=== PATIENT | male | born 1970 ===

== ENCOUNTER 2017-05-12 20:10 | Emergency (ER) | payer OTHER ==
[2017-05-12 20:20] VITALS: BMI 42.0
[2017-05-12 20:23] VITALS: TEMP 99.1
[2017-05-12] MEDS ORDERED: Oxycodone/Acetaminophen 5/325 mg Tab PO STA (20:42)
--- NOTE | 2017-05-12 20:48 | ED PDOC ---
Arrival/HPI - General Chief Complaint: Back Pain Time Seen by Provider: 05/12/17 20:41 Historian: Patient - History of Present Illness Narrative History of Present Illness (Text): 05/12/17 20:44 A 46 year old male presents to the emergency department complaining of lower back pain for the past few days. Patient describes the pain as a sharp sensation. He notes radiating pain down bilateral legs, left worse than right. Patient denies any fall, trauma, fever, chills, nausea, vomiting, diarrhea, abdominal pain, urinary symptoms, urinary/bowel incontinence, chest pain, palpitations, shortness of breath, cough or any other complaints. Patient has a history of back pain 4 years ago. PMD: Dr. Velásquez Time/Duration: < week Symptom Course: Unchanged Quality: Other Context: Other Past Medical History - Provider Review Nursing Documentation Reviewed: Yes - Infectious Disease Hx of Infectious Diseases: None - Tetanus Immunization Tetanus Immunization: Unknown - Endocrine/Metabolic Hx Diabetes Mellitus Type 2: Yes - Psychiatric Hx Psychophysiologic Disorder: No Hx Anxiety: No Hx Substance Use: No - Surgical History Hx Orthopedic Surgery: Yes (rt knee) - Anesthesia Hx Anesthesia: Yes Hx Anesthesia Reactions: No Hx Malignant Hyperthermia: No - Suicidal Assessment Feels Threatened In Home Enviroment: No Family/Social History - Physician Review Nursing Documentation Reviewed: Yes Family/Social History: No Known Family HX Smoking Status: Former Smoker Hx Alcohol Use: No Hx Substance Use: No Hx Substance Use Treatment: No Allergies/Home Meds Allergies/Adverse Reactions: Allergies No Known Allergies Allergy (Verified 09/13/16 17:42) Home Medications: Home Meds Medication Instructions Recorded Confirmed Pravastatin Sodium [Pravachol] 10 mg PO DAILY 09/13/16 05/12/17 metFORMIN [glucOPHAGE] 500 mg PO BID 09/13/16 05/12/17 Review of Systems - Physician Review All systems were reviewed & negative as marked: Yes - Review of Systems Constitutional: absent: Fevers, Night Sweats Respiratory: absent: SOB, Cough Cardiovascular: absent: Chest Pain, Palpitations Gastrointestinal: absent: Abdominal Pain, Diarrhea, Nausea, Vomiting Genitourinary Male: absent: Dysuria, Frequency, Hematuria, Urinary Output Changes Musculoskeletal: Back Pain (Lower back pain radiating down bilateral legs, left worse than right) Physical Exam Vital Signs Reviewed: Yes Vital Signs Temp Pulse Resp BP Pulse Ox 05/12/17 22:14 74 14 128/85 97 05/12/17 20:22 99.1 F 83 18 142/80 95 Temperature: Afebrile Blood Pressure: Normal Pulse: Regular Respiratory Rate: Normal Appearance: Positive for: Well-Appearing, Non-Toxic, Comfortable Pain Distress: None Mental Status: Positive for: Alert and Oriented X 3 - Systems Exam Head: Present: Atraumatic, Normocephalic Pupils: Present: PERRL Extroacular Muscles: Present: EOMI Conjunctiva: Present: Normal Mouth: Present: Moist Mucous Membranes Neck: Present: Normal Range of Motion Respiratory/Chest: Present: Clear to Auscultation, Good Air Exchange. No: Respiratory Distress, Accessory Muscle Use Cardiovascular: Present: Regular Rate and Rhythm, Normal S1, S2. No: Murmurs Abdomen: Present: Normal Bowel Sounds. No: Tenderness, Distention, Peritoneal Signs Back: Present: Pain with Leg Raise (left lower extremity), Other (Diffuse lower back pain) Upper Extremity: Present: Normal Inspection. No: Cyanosis, Edema Lower Extremity: Present: Normal Inspection. No: Edema Neurological: Present: GCS=15, CN II-XII Intact, Speech Normal Skin: Present: Warm, Dry, Normal Color. No: Rashes Psychiatric: Present: Alert, Oriented x 3, Normal Insight, Normal Concentration Medical Decision Making ED Course and Treatment: 05/12/17 20:44 Impression: A 46 year old male with lower back pain radiating down bilateral lower extremities, left worse than right. Plan: -- Flexeril and Percocet -- Reassess and disposition Progress Notes: - Medication Orders Current Medication Orders: Discontinued Medications Cyclobenzaprine HCl (Flexeril) 10 mg PO STAT STA Stop: 05/12/17 20:43 Last Admin: 05/12/17 20:55 Dose: 10 mg Oxycodone/Acetaminophen (Percocet 5/325 Mg Tab) 2 tab PO STAT STA Stop: 05/12/17 20:43 Last Admin: 05/12/17 20:54 Dose: 2 tab - Scribe Statement The provider has reviewed the documentation as recorded by the Chanduibangela Herring Provider Scribe Attestation: All medical record entries made by the Scribe were at my direction and personally dictated by me. I have reviewed the chart and agree that the record accurately reflects my personal performance of the history, physical exam, medical decision making, and the department course for this patient. I have also personally directed, reviewed, and agree with the discharge instructions and disposition. Disposition/Present on Arrival - Present on Arrival Any Indicators Present on Arrival: No History of DVT/PE: No History of Uncontrolled Diabetes: No Urinary Catheter: No History of Decub. Ulcer: No History Surgical Site Infection Following: None - Disposition Have Diagnosis and Disposition been Completed?: Yes Diagnosis: Back pain, Sciatic leg pain Disposition: HOME/ ROUTINE Disposition Time: 21:40 Condition: IMPROVED Discharge Instructions (ExitCare): Sciatica (ED), Acute Low Back Pain (ED) Additional Instructions: Thank you for letting us take care of you today. You were treated for acute back pain. The emergency medical care you received today was directed at your acute symptoms. If you were prescribed any medication, please fill it and take as directed. It may take several days for your symptoms to resolve. Return to the Emergency Department if your symptoms worsen, do not improve, or if you have any other problems. Please contact your doctor or call one of the physicians/clinics you have been referred to that are listed on the Patient Visit Information form that is included in your discharge packet. Bring any paperwork you were given at discharge with you along with any medications you are taking to your follow up visit. Our treatment cannot replace ongoing medical care by a primary care provider (PCP) outside of the emergency department. Thank you for allowing the [facility] team to be part of your care today. Follow up with your primary doctor in 2-3 days for re-evaluation. Prescriptions: Cyclobenzaprine [Cyclobenzaprine HCl] 10 mg PO Q8 PRN #20 tab PRN Reason: Muscle Spasm oxyCODONE/Acetaminophen [Percocet 5/325 mg Tab] 1 ea PO Q6 PRN #15 tab PRN Reason: Pain, Severe (8-10) Referrals: Ady Velásquez MD [Primary Care Provider] - Follow up with primary
[2017-05-12 22:15] VITALS: BP 128/85; PULSE 74; RESP 14; O2SAT 97
== END 2017-05-12 22:14 | disposition home or self-care (01) ==
LOC: ED 20:10
DX: M54.42 Lumbago with sciatica, left side (principal)